=== PATIENT | male | born 1955 ===

== ENCOUNTER 2017-11-02 09:46 | Outpatient (RCR) | payer OTHER ==
[~2017-11-02 09:46] MED LIST: LIDOCAINE VISC 2% SOLN 15 ML UDC ONE; LIDOCAINE/PRILOCAINE 2.5-2.5% KIT ONE
[2017-11-02] MEDS ORDERED: LIDOCAINE/PRILOCAINE 2.5-2.5% KIT ONE (15:28)
== END 2017-11-07 ==
LOC: WCC 09:46
PROVIDERS: ATTEND Family Medicine Adult Medicine
DX: E11.9 Type 2 diabetes mellitus without complications (principal); S21.201A Unspecified open wound of right back wall of thorax without penetration into thoracic cavity, initial encounter; T21.23XA Burn of second degree of upper back, initial encounter; I87.2 Venous insufficiency (chronic) (peripheral); I10 Essential (primary) hypertension; E78.00 Pure hypercholesterolemia, unspecified; E66.3 Overweight
CPT/HCPCS: 36415; 82948

== ENCOUNTER 2017-12-07 09:14 | Outpatient (RCR) | payer OTHER ==
[~2017-12-07 09:14] MED LIST changes: +MINERAL OIL/PETROLAT/GLYCERI 2OZ CRM ONE
[2017-12-07] MEDS ORDERED: LIDOCAINE/PRILOCAINE 2.5-2.5% KIT ONE ×2 (11:58→18:41)
== END 2017-12-08 ==
LOC: WCC 09:14
PROVIDERS: ATTEND Family Medicine Adult Medicine
DX: E11.9 Type 2 diabetes mellitus without complications (principal); T21.23XA Burn of second degree of upper back, initial encounter; S21.201A Unspecified open wound of right back wall of thorax without penetration into thoracic cavity, initial encounter; S20.91XA Abrasion of unspecified parts of thorax, initial encounter; I87.2 Venous insufficiency (chronic) (peripheral); R23.8 Other skin changes; I10 Essential (primary) hypertension; E66.3 Overweight; E78.00 Pure hypercholesterolemia, unspecified

== ENCOUNTER 2017-12-21 11:09 | Outpatient (RCR) | payer OTHER ==
[~2017-12-21 11:09] MED LIST changes: -LIDOCAINE VISC 2% SOLN 15 ML UDC ONE; -MINERAL OIL/PETROLAT/GLYCERI 2OZ CRM ONE
[2017-12-21] MEDS ORDERED: MINERAL OIL/PETROLAT/GLYCERI 6OZ BTL ONE (14:50)
== END 2018-01-07 ==
LOC: WCC 11:09
PROVIDERS: ATTEND Family Medicine Adult Medicine
DX: E11.9 Type 2 diabetes mellitus without complications (principal); S21.201A Unspecified open wound of right back wall of thorax without penetration into thoracic cavity, initial encounter; T21.23XA Burn of second degree of upper back, initial encounter; S30.820A Blister (nonthermal) of lower back and pelvis, initial encounter; R23.8 Other skin changes; I87.2 Venous insufficiency (chronic) (peripheral); I10 Essential (primary) hypertension; E66.3 Overweight; E78.00 Pure hypercholesterolemia, unspecified